=== PATIENT | male | born 1990 | race Caucasian/White ===

== ENCOUNTER 2016-06-04 18:41 | Emergency (ER) | payer MEDICAID ==
[~2016-06-04] VITALS: Ht 185.4 cm; Wt 81.6 kg
[2016-06-04 18:55] VITALS: BP 110/61
== END 2016-06-04 22:03 | disposition left against medical advice (07) ==
LOC: ER 18:56
DX: S51.831A Puncture wound without foreign body of right forearm, initial encounter (principal); X58.XXXA Exposure to other specified factors, initial encounter; Y93.89 Activity, other specified; Y92.89 Other specified places as the place of occurrence of the external cause; Y99.8 Other external cause status; Z53.21 Procedure and treatment not carried out due to patient leaving prior to being seen by health care provider